=== PATIENT | female | born 1940 | race Two or more races ===

== ENCOUNTER 2021-08-22 07:19 | Inpatient (IN) | payer MEDICARE, OTHER ==
[~2021-08-22] VITALS: Ht 165.1 cm; Wt 92.8 kg
[2021-08-22] MEDS ORDERED: SODIUM CHLORIDE 0.9% 1,000 ML IV ONE (08:15)
[2021-08-22 08:56] LABS: Basophils # (auto) 0.1 10 ^3/uL (0-0.2); Eosinophils # (auto) 0.3 10 ^3/uL (0-0.8); Eosinophils % (auto) 3.3 % (0.0-7.0); Hematocrit 33.8 % (36.0-46.0); Hemoglobin 11.4 g/dL (12.2-16.2); Lymphocytes # (auto) 2.1 10 ^3/uL (0.4-5.4); Mean Corpuscular Hemoglobin 31.3 pg (28.0-32.0); Mean Corpuscular Hgb Conc. 33.6 g/dL (32.0-36.0); Mean Corpuscular Volume 93.2 fL (80.0-100.0); Monocytes # (auto) 0.8 10 ^3/uL (0-1.3); Monocytes % (auto) 9.9 % (0.0-12.0); Neutrophils # (auto) 4.7 10 ^3/uL (1.6-8.6); Neutrophils % (auto) 59.8 % (37.0-80.0); Nucleated Red Blood Cells % 0.1 %; Red Blood Cells 3.62 10^6/uL (4.0-5.20); Red Cell Distribution Width 13.2 % (11.8-14.3); White Blood Cell 7.9 10^3/uL (4.4-10.8)
[2021-08-22 09:19] LABS: Albumin 2.9 g/dL (3.4-5.0); Calcium 8.8 mg/dL (8.5-10.1); Potassium 3.5 mmol/L (3.5-5.1)
[2021-08-22 09:22] LABS: BUN/Creatinine Ratio 13.4; Bilirubin, Total 0.9 mg/dL (0.2-1.0); Total Protein 6.9 g/dL (6.4-8.2)
[2021-08-22] MEDS ORDERED: MORPHINE SULFATE INJ 2 MG/ml SYRG IV PRN (13:45)
[2021-08-22] MEDS ORDERED: DEXTROSE (50%) 50ML SYRG IV PRN (13:45)
[2021-08-22] MEDS ORDERED: NITROGLYCERIN 0.4 MG SL TAB SL PRN (13:45)
[2021-08-22 14:15] LABS: Cholesterol 154 mg/dL (< 200); HDL Cholesterol 53 mg/dL (40-59); LDL Cholesterol 89 mg/dL (< 100); Triglycerides 63 mg/dL (< 150)
[2021-08-22] MEDS ORDERED: NTG 0.1MG/HR TOPICAL PATCH TD ONE (16:15)
[2021-08-22] MEDS ORDERED: ENOXAPARIN SOD 80 MG/0.8ML SYRINGE SC ONE (16:15)
[2021-08-22] MEDS: InsuLIN REG 1unit/0.01ml Soln (100units/ml) SC SCH (18:15)
[2021-08-22] MEDS: ACCU-CHEK COMFORT CURVE STRIP VI SCH ×2 (18:18→22:00)
[2021-08-22 20:00] VITALS: BP 124/65
[2021-08-22 22:00] VITALS: BP 124/65
[2021-08-22] MEDS ORDERED: InsuLIN REG 1unit/0.01ml Soln (100units/ml) SC SCH (22:00)
[2021-08-23] MEDS ORDERED: IRBE300T79 PO (02:19)
[2021-08-23] MEDS ORDERED: CLON0.3D4 PO (02:19)
[2021-08-23] MEDS ORDERED: AMLO-489 PO (02:19)
[2021-08-23] MEDS ORDERED: ATEN50TA PO (02:19)
[2021-08-23 05:00] VITALS: BP 165/85
[2021-08-23 05:28] VITALS: BP 154/76
[2021-08-23] MEDS: InsuLIN REG 1unit/0.01ml Soln (100units/ml) SC SCH (06:45)
[2021-08-23] MEDS: ACCU-CHEK COMFORT CURVE STRIP VI SCH (06:46)
[2021-08-23 09:00] VITALS: BP 145/85
[2021-08-23] MEDS: ENOXAPARIN SOD 40 MG/0.4 ML SYRINGE SC SCH (09:40)
[2021-08-23] MEDS ORDERED: amLODIPine BESYLATE 5 MG TAB PO ONE (10:45)
[2021-08-23] MEDS ORDERED: cloNIDine HCL 0.1 MG TAB PO PRN (10:45)
[2021-08-23 13:32] LABS: Urine Bacteria NONE SEEN /hpf (None Seen); Urine Blood 3+ /uL (Negative); Urine Specific Gravity 1.012 (1.001-1.035); Urine WBC 85 /hpf (0 - 5)
[2021-08-23 14:00] VITALS: BP 140/82
[2021-08-23 17:00] VITALS: BP 153/88
[2021-08-23 19:17] LABS: Basophils # (auto) 0.1 10 ^3/uL (0-0.2); Basophils % (auto) 0.8 % (0.0-2.0); Eosinophils # (auto) 0.1 10 ^3/uL (0-0.8); Eosinophils % (auto) 1.9 % (0.0-7.0); Hematocrit 35.9 % (36.0-46.0); Hemoglobin 12.3 g/dL (12.2-16.2); Lymphocytes # (auto) 1.9 10 ^3/uL (0.4-5.4); Lymphocytes % (auto) 26.1 % (10.0-50.0); Mean Corpuscular Hgb Conc. 34.4 g/dL (32.0-36.0); Monocytes # (auto) 0.7 10 ^3/uL (0-1.3); Monocytes % (auto) 9.1 % (0.0-12.0); Neutrophils # (auto) 4.5 10 ^3/uL (1.6-8.6); Neutrophils % (auto) 62.1 % (37.0-80.0); Red Blood Cells 3.86 10^6/uL (4.0-5.20); Red Cell Distribution Width 12.8 % (11.8-14.3); White Blood Cell 7.2 10^3/uL (4.4-10.8)
[2021-08-23 19:42] LABS: Albumin 3.2 g/dL (3.4-5.0); BUN/Creatinine Ratio 11.2; Calcium 9.1 mg/dL (8.5-10.1); Potassium 3.3 mmol/L (3.5-5.1)
[2021-08-23 19:45] LABS: Bilirubin, Total 0.7 mg/dL (0.2-1.0); Total Protein 7.4 g/dL (6.4-8.2)
[2021-08-23 22:00] VITALS: BP 154/72
[2021-08-23] MEDS: ATORVASTATIN 20 MG TAB PO SCH (22:00)
[2021-08-23] MEDS ORDERED: FLEET ENEMA(ADULT) 135 ML PR ONE (22:45)
[2021-08-24 06:32] LABS: Basophils # (auto) 0 10 ^3/uL (0-0.2); Basophils % (auto) 0.4 % (0.0-2.0); Eosinophils # (auto) 0.1 10 ^3/uL (0-0.8); Eosinophils % (auto) 1.1 % (0.0-7.0); Hematocrit 37.3 % (36.0-46.0); Hemoglobin 12.5 g/dL (12.2-16.2); Lymphocytes # (auto) 1.4 10 ^3/uL (0.4-5.4); Lymphocytes % (auto) 19.6 % (10.0-50.0); Mean Corpuscular Hemoglobin 31.3 pg (28.0-32.0); Mean Corpuscular Hgb Conc. 33.5 g/dL (32.0-36.0); Mean Corpuscular Volume 93.4 fL (80.0-100.0); Monocytes # (auto) 0.7 10 ^3/uL (0-1.3); Monocytes % (auto) 9.4 % (0.0-12.0); Neutrophils # (auto) 5.1 10 ^3/uL (1.6-8.6); Neutrophils % (auto) 69.5 % (37.0-80.0); Red Blood Cells 3.99 10^6/uL (4.0-5.20); White Blood Cell 7.4 10^3/uL (4.4-10.8)
[2021-08-24 06:54] LABS: Calcium 9.4 mg/dL (8.5-10.1); Potassium 3.1 mmol/L (3.5-5.1)
[2021-08-24] MEDS: ASPirin 81 mg TAB PO SCH (08:35)
[2021-08-24] MEDS: ENOXAPARIN SOD 40 MG/0.4 ML SYRINGE SC SCH (08:36)
[2021-08-24 09:00] VITALS: BP 151/74
[2021-08-24] MEDS ORDERED: POTASSIUM CHL 20 Meq TABLET PO ONE (10:00)
[2021-08-24] MEDS ORDERED: cefTRIAXone 1GM/50ML D5W 50 ML IV ONE (10:00)
[2021-08-24] MEDS: amLODIPine BESYLATE 5 MG TAB PO SCH (10:00)
[2021-08-24] MEDS ORDERED: amLODIPine BESYLATE 5 MG TAB PO SCH (10:00)
[2021-08-24] MEDS: HYDROcodone-ACET 5/325MG TAB PO PRN ×2 (11:21→18:22)
[2021-08-24] MEDS: ATENOLOL 25 MG TAB PO SCH (11:29)
[2021-08-24] MEDS ORDERED: HALOPERIDOL LACTATE 5 MG/ML INJ VIAL ONE ×2 (12:10→12:15)
[2021-08-24] MEDS ORDERED: HALOPERIDOL LACTATE 5 MG/ML INJ VIAL IM ONE (12:15)
[2021-08-24] MEDS ORDERED: HALOPERIDOL LACTATE 5 MG/ML INJ VIAL IM PRN (15:30)
[2021-08-24 17:00] VITALS: BP 123/87
[2021-08-24] MEDS: ATORVASTATIN 20 MG TAB PO SCH (22:38)
[2021-08-25 09:07] VITALS: BP 120/75
[2021-08-25] MEDS: cefTRIAXone 1GM/50ML D5W 50 ML IV SCH (09:32)
[2021-08-25] MEDS: amLODIPine BESYLATE 5 MG TAB PO SCH (09:33)
[2021-08-25] MEDS: ENOXAPARIN SOD 40 MG/0.4 ML SYRINGE SC SCH (09:34)
[2021-08-25] MEDS: ATENOLOL 25 MG TAB PO SCH (09:35)
[2021-08-25] MEDS: ASPirin 81 mg TAB PO SCH (09:40)
[2021-08-25] MEDS: HYDROcodone-ACET 5/325MG TAB PO PRN ×2 (12:12→22:12)
[2021-08-25 12:30] VITALS: BP 136/70
[2021-08-25 14:25] LABS: BUN/Creatinine Ratio 11.2; Calcium 9.9 mg/dL (8.5-10.1); Potassium 3.8 mmol/L (3.5-5.1)
[2021-08-25 17:05] VITALS: BP 147/74
[2021-08-25 20:00] VITALS: BP 120/67
[2021-08-25 22:00] VITALS: BP 137/69
[2021-08-26] MEDS: ATORVASTATIN 20 MG TAB PO SCH ×2 (02:10→21:06)
[2021-08-26 05:00] VITALS: BP 139/80
[2021-08-26 09:00] VITALS: BP 129/68
[2021-08-26] MEDS: cefTRIAXone 1GM/50ML D5W 50 ML IV SCH ×2 (09:00→10:10)
[2021-08-26] MEDS: amLODIPine BESYLATE 5 MG TAB PO SCH ×2 (10:00→10:12)
[2021-08-26] MEDS: ASPirin 81 mg TAB PO SCH ×2 (10:00→10:12)
[2021-08-26] MEDS: ENOXAPARIN SOD 40 MG/0.4 ML SYRINGE SC SCH ×2 (10:00→10:12)
[2021-08-26] MEDS: ATENOLOL 25 MG TAB PO SCH ×2 (10:00→10:12)
[2021-08-26] MEDS ORDERED: cloNIDine 0.3 mg/24hr 7DAY PATCH TD SCH (10:00)
[2021-08-26 14:11] LABS: BUN/Creatinine Ratio 10.9; Calcium 9.7 mg/dL (8.5-10.1); Potassium 3.6 mmol/L (3.5-5.1)
[2021-08-26 16:34] VITALS: BP 129/68
[2021-08-26 17:12] VITALS: BP 143/75
[2021-08-26 21:00] VITALS: BP 162/90
[2021-08-26 21:45] VITALS: BP 119/83
== END 2021-08-26 21:40 | disposition home or self-care (01) | DRG 871 ==
LOC: EDBD 07:19 → ER 07:19 → TELE 16:17 → TELE-CENTR 19:03 → CENTRAL 08-24 21:54
PROVIDERS: ADMIT Registered Nurse; ATTEND Internal Medicine
PROC: 05HF33Z Insertion of Infusion Device into Left Cephalic Vein, Percutaneous Approach (ICD-10-PCS; 2021-08-23)
PROC: B54NZZA Ultrasonography of Left Upper Extremity Veins, Guidance (ICD-10-PCS; 2021-08-23)
PROC: 05H933Z Insertion of Infusion Device into Right Brachial Vein, Percutaneous Approach (ICD-10-PCS; principal; 2021-08-24)
PROC: B54MZZA Ultrasonography of Right Upper Extremity Veins, Guidance (ICD-10-PCS; 2021-08-24)
DX: A41.9 Sepsis, unspecified organism (principal); I21.A1 Myocardial infarction type 2; N17.0 Acute kidney failure with tubular necrosis; G92.8 Other toxic encephalopathy; E46 Unspecified protein-calorie malnutrition; N39.0 Urinary tract infection, site not specified; R62.7 Adult failure to thrive; Z68.35 Body mass index [BMI] 35.0-35.9, adult; D64.9 Anemia, unspecified; E11.22 Type 2 diabetes mellitus with diabetic chronic kidney disease; E66.01 Morbid (severe) obesity due to excess calories; I12.9 Hypertensive chronic kidney disease with stage 1 through stage 4 chronic kidney disease, or unspecified chronic kidney disease; M19.90 Unspecified osteoarthritis, unspecified site; N18.31 Chronic kidney disease, stage 3a; E87.6 Hypokalemia; Z20.822 Contact with and (suspected) exposure to COVID-19; Z79.84 Long term (current) use of oral hypoglycemic drugs; Z82.49 Family history of ischemic heart disease and other diseases of the circulatory system
CPT/HCPCS: 36415; 71045; 80048; 80053; 80061; 81001; 82962; 83036; 83880; 84484; 85025; 87081; 87086; 93005; 93306; 96360; 97110; 97116; 97530; 99291; G0378; J0696

== ENCOUNTER 2022-02-13 16:36 | Emergency (ER) | payer MEDICARE ==
[~2022-02-13] VITALS: Ht 162.6 cm; Wt 102.5 kg
[~2022-02-13 16:36] MED LIST: AMLO-489 PO; ATEN50TA PO; CLON0.3D4 PO; IRBE300T79 PO
[2022-02-13 20:18] LABS: Basophils # (auto) 0.1 10 ^3/uL (0-0.2); Basophils % (auto) 0.8 % (0.0-2.0); Eosinophils # (auto) 0.2 10 ^3/uL (0-0.8); Eosinophils % (auto) 2.5 % (0.0-7.0); Hematocrit 43.7 % (36.0-46.0); Hemoglobin 14.7 g/dL (12.2-16.2); Lymphocytes # (auto) 2.4 10 ^3/uL (0.4-5.4); Mean Corpuscular Hemoglobin 31.3 pg (28.0-32.0); Mean Corpuscular Hgb Conc. 33.7 g/dL (32.0-36.0); Monocytes # (auto) 0.6 10 ^3/uL (0-1.3); Monocytes % (auto) 6.4 % (0.0-12.0); Neutrophils # (auto) 5.9 10 ^3/uL (1.6-8.6); Neutrophils % (auto) 64.3 % (37.0-80.0); Nucleated Red Blood Cells % 0.2 %; Red Cell Distribution Width 13.1 % (11.8-14.3); White Blood Cell 9.2 10^3/uL (4.4-10.8)
[2022-02-13 20:37] LABS: Albumin 3.9 g/dL (3.4-5.0); Potassium 3.4 mmol/L (3.5-5.1)
[2022-02-13 20:40] LABS: BUN/Creatinine Ratio 18.5; Bilirubin, Total 0.8 mg/dL (0.2-1.0); Total Protein 8.5 g/dL (6.4-8.2)
[2022-02-13] MEDS ORDERED: GLYCERIN ADULT RECTAL SUPP PR ONE (21:00)
[2022-02-13] MEDS ORDERED: POTASSIUM CHL 20 Meq TABLET PO ONE (21:30)
[2022-02-13] MEDS ORDERED: DOXY-332 PO (22:05)
[2022-02-13] MEDS ORDERED: ACETAMINOPHEN 325 MG TAB PO ONE (22:15)
[2022-02-14 05:44] VITALS: BP 159/85
== END 2022-02-14 16:09 | disposition home or self-care (01) ==
LOC: ER 16:36 → EDUNIT# 16:36 → EDBD 16:36 → ER 02-14 16:09
DX: K59.00 Constipation, unspecified (principal); K62.89 Other specified diseases of anus and rectum; I12.9 Hypertensive chronic kidney disease with stage 1 through stage 4 chronic kidney disease, or unspecified chronic kidney disease; E11.22 Type 2 diabetes mellitus with diabetic chronic kidney disease; N18.9 Chronic kidney disease, unspecified; Z79.2 Long term (current) use of antibiotics; Z79.899 Other long term (current) drug therapy
CPT/HCPCS: 36415; 74176; 80053; 85025